=== PATIENT | female | born 1985 | race Caucasian/White ===

== ENCOUNTER 2018-05-17 06:50 | Day surgery (SDC) | payer OTHER ==
[2018-05-17] MEDS ORDERED: dexameTHASONE 10 MG/1 ML VIAL PRES.FREE (J1100) (06:51)
[2018-05-17] MEDS ORDERED: ROPIvacaine 0.5% 30 ML INJECTION (J2795 PER 1MG) (06:51)
[2018-05-17] MEDS ORDERED: EPINEPHrine INJ 1 MG/ML 1ML AMP (06:51)
[2018-05-17 07:27] LABS: CONTROL LINE UCG INT CTR LINE PRESENT; URINE PREG TEST NEGATIVE (NEGATIVE)
[2018-05-17] MEDS: LR 1,000 ML IV ×2 (07:30→11:24)
[2018-05-17] MEDS ORDERED: SCOPOLAMINE 1MG TRANSDERMAL PATCH As Ordered (07:49)
[2018-05-17] MEDS ORDERED: fentaNYL 100 MCG/2 ML INJECTION (J3010) As Ordered ×2 (07:57→10:58)
[2018-05-17] MEDS ORDERED: MIDAZOLAM INJ 2 MG/2 ML VIAL (J2250) As Ordered ×2 (07:57→09:20)
[2018-05-17] MEDS: fentaNYL 100 MCG/2 ML INJECTION (J3010) IV ×5 (08:23→11:19)
[2018-05-17] MEDS: MIDAZOLAM INJ 2 MG/2 ML VIAL (J2250) IV (08:23)
[2018-05-17] MEDS: ceFAZolin SOD 1 GM in D5W MINI-BAG PLUS 50 ML IV (09:00)
[2018-05-17] MEDS ORDERED: ROCURONIUM BROMIDE 50 MG/5 ML VIAL As Ordered ×2 (09:20)
[2018-05-17] MEDS ORDERED: METOCLOPRAMIDE INJ 10MG/2ML VIAL (J2765) As Ordered (09:20)
[2018-05-17] MEDS ORDERED: GLYCOPYRROLATE INJ 0.2 MG/ML 2 ML VIAL As Ordered (09:20)
[2018-05-17] MEDS ORDERED: dexameTHASONE 4 MG/ML 1ML VIAL (J1100) As Ordered (09:20)
[2018-05-17] MEDS ORDERED: NEOSTIGMINE 10 MG/10 ML VIAL (J2710) As Ordered (09:20)
[2018-05-17] MEDS ORDERED: LIDOCAINE 2% INJ 100 MG/5 ML SDV (FOR ANES.) As Ordered (09:20)
[2018-05-17] MEDS ORDERED: PROPOFOL 200 MG/20 ML VIAL As Ordered (09:20)
[2018-05-17] MEDS ORDERED: ONDANSETRON 4MG/2ML VIAL (J2405) As Ordered (09:20)
[2018-05-17] MEDS ORDERED: KETOROLAC 60 MG/2 ML VIAL (J1885) As Ordered (09:20)
[2018-05-17] MEDS ORDERED: fentaNYL 250 MCG/5 ML INJECTION (J3010) As Ordered (09:20)
[2018-05-17] MEDS: ceFAZolin 1GM INJ (J0690 PER 500MG) As Ordered (09:40)
[2018-05-17] MEDS ORDERED: SEVOFLURANE INHAL SOLN 250 ML BTL As Ordered (09:49)
[2018-05-17] MEDS: ROPIvacaine 0.5% 30 ML INJECTION (J2795 PER 1MG) As Ordered (10:30)
[2018-05-17] MEDS ORDERED: NORCO, ANEXSIA 5/325MG TABLET (HYDROcodone/ACETAMINOPHEN) As Ordered (11:01)
[2018-05-17] MEDS: NORCO, ANEXSIA 5/325MG TABLET (HYDROcodone/ACETAMINOPHEN) PO ×2 (11:03→11:33)
[2018-05-17] MEDS ORDERED: LR 1,000 ML IV (11:15)
[2018-05-17] MEDS ORDERED: NORCO, ANEXSIA 5/325MG TABLET (HYDROcodone/ACETAMINOPHEN) PO ×2 (11:15→12:15)
[2018-05-17] MEDS ORDERED: MORPHINE 4 MG/ML 1ML VIAL/SYRINGE (J2270) IV (11:15)
[2018-05-17] MEDS: ONDANSETRON 4MG/2ML VIAL (J2405) IV (11:17)
[2018-05-17] MEDS ORDERED: MORPHINE 10 MG/ML 1ML VIAL (J2270) As Ordered (12:05)
[2018-05-17] MEDS: MORPHINE 10 MG/ML 1ML VIAL (J2270) IV ×5 (12:09→12:29)
== END 2018-05-17 14:10 | disposition home or self-care (01) ==
LOC: M SDC 06:50
DX: S83.411A Sprain of medial collateral ligament of right knee, initial encounter (principal); X58.XXXA Exposure to other specified factors, initial encounter; Y92.89 Other specified places as the place of occurrence of the external cause; Y99.9 Unspecified external cause status; Y93.9 Activity, unspecified; M23.41 Loose body in knee, right knee; F41.9 Anxiety disorder, unspecified; K21.9 Gastro-esophageal reflux disease without esophagitis; Z79.899 Other long term (current) drug therapy
CPT/HCPCS: 29888

== ENCOUNTER → 2018-10-12 | Outpatient (REF) | payer OTHER ==
[2018-10-12 20:35] LABS: BASO % 0.6 % (0.0-1.0); EOS # 0.2 10^3/uL (0.0-0.50); EOS % 2.9 % (0.0-3.0); HEMATOCRIT 42.5 % (36.0-47.0); HEMOGLOBIN 14.1 g/dl (12.0-15.5); IMMATURE GRANULOCYTE % 0.3 % (0-3.0); LYMPH # 2.5 10^3/uL (1.5-4.5); LYMPH % 36.2 % (24.0-44.0); MEAN CORPUSCULAR HEMOGLOBIN 31.9 pg (27.0-33.0); MEAN CORPUSCULAR HGB CONC 33.2 g/dl (32.0-36.5); MEAN CORPUSCULAR VOLUME 96.2 fl (80.0-96.0); MONO # 0.4 10^3/uL (0.0-0.8); NEUTROPHILS # 3.8 10^3/uL (1.8-7.7); PLATELET COUNT, AUTOMATED 252 10^3/uL (150-450); RED BLOOD COUNT 4.42 10^6/uL (4.00-5.40); RED CELL DISTRIBUTION WIDTH 11.5 % (11.5-14.5)
[2018-10-12 20:55] LABS: ALBUMIN 4.2 GM/DL (3.2-5.2); ALBUMIN/GLOBULIN RATIO 1.31 (1.00-1.93); ALKALINE PHOSPHATASE 57 U/L (45-117); ALT/SGPT 22 U/L (12-78); ANION GAP 8 MEQ/L (8-16); AST/SGOT 18 U/L (7-37); BILIRUBIN,TOTAL 0.3 MG/DL (0.2-1.0); BLOOD UREA NITROGEN 11 MG/DL (7-18); CALCIUM LEVEL 8.8 MG/DL (8.5-10.1); CARBON DIOXIDE LEVEL 27 MEQ/L (21-32); CHLORIDE LEVEL 104 MEQ/L (98-107); CHOLESTEROL LEVEL 188 MG/DL (<200); CHOLESTEROL RISK RATIO 3.615 (<5); CREATININE FOR GFR 0.85 MG/DL (0.55-1.30); GLOMERULAR FILTRATION RATE > 60.0 (>60); GLUCOSE, FASTING 77 MG/DL (70-100); HDL CHOLESTEROL 52 MG/DL (>40); LDL CHOLESTEROL 98 MG/DL (<100); NON-HDL-C 136 MG/DL; POTASSIUM SERUM 4.7 MEQ/L (3.5-5.1); SODIUM LEVEL 139 MEQ/L (136-145); TOTAL PROTEIN 7.4 GM/DL (6.4-8.2); TRIGLYCERIDES LEVEL 192 MG/DL (<150)
== END ==
LOC: M SFHCADAM 15:40
DX: J45.990 Exercise induced bronchospasm (principal); Z13.220 Encounter for screening for lipoid disorders; Z13.0 Encounter for screening for diseases of the blood and blood-forming organs and certain disorders involving the immune mechanism
CPT/HCPCS: 84443

== ENCOUNTER → 2019-03-16 | Outpatient (REF) | payer OTHER ==
[~2019-03-16] MED LIST: IBUP200C25 PO; IBUP80TA PO; LABE300T PO; MIRE1IUD IU; NEXI1CAP3 PO; PERC7.5T12 PO; PRENTAB9 PO; RANI150T PO; XANA0.25 PO
== END ==
LOC: M LAB REF 19:14
PROVIDERS: ATTEND Physician Assistant Medical
DX: J02.9 Acute pharyngitis, unspecified (principal)

== ENCOUNTER → 2019-04-26 | Outpatient (CLI) | payer BC, OTHER ==
[~2019-04-26] MED LIST changes: +PROHANCE 279.3MG/ML 15ML VIAL (A9576) As Ordered ONE; +PROHANCE 279.3MG/ML 5ML VIAL (A9576) As Ordered ONE
--- NOTE | 2019-04-27 08:52 | REP ---
MRI BILATERAL BREASTS WITH AND WITHOUT CONTRAST: HISTORY: Extensive family history of maternal breast cancer in two maternal aunts, one at two different times, one premenopausal breast cancer at age 43. [facility] lifetime risk of breast cancer 26.9%. Multiple sequences obtained in the axial, coronal and sagittal planes prior to and following the intravenous administration of 16 mL ProHance. Imaging includes pre- and postaxial T1 fat sat images dynamically. Images are evaluated on [employer] software including CAD imaging, color overlay and 3D MIP reconstructions. Moderate fibroglandular tissue is seen bilaterally. Moderate background parenchymal enhancement is seen. No suspicious enhancing mass is seen. There is no morphologic abnormality. No significant cystic changes are seen. Normal size axillary lymph nodes are present without evidence of axillary adenopathy. IMPRESSION: BIRADS category 1 bilateral breast MRI. No suspicious mass. No morphologic abnormality. Supplemental screening MRI of the breasts is recommended annually for patients with lifetime risk of breast cancer 20% or greater. Electronically Signed by Yvon Garcia MD 04/27/2019 03:11 P
== END ==
LOC: M RAD 14:55
PROVIDERS: ATTEND Physician Assistant Medical
DX: Z80.3 Family history of malignant neoplasm of breast (principal)
CPT/HCPCS: A9576; C8908

== ENCOUNTER → 2019-10-26 | Outpatient (CLI) | payer BC ==
[~2019-10-26] MED LIST changes: -PROHANCE 279.3MG/ML 15ML VIAL (A9576) As Ordered ONE; -PROHANCE 279.3MG/ML 5ML VIAL (A9576) As Ordered ONE
--- NOTE | 2019-10-26 12:39 | REP ---
CHEST, TWO VIEWS: There is no evidence of acute infiltrate. No pleural effusion is seen. The heart is normal in size. The mediastinal silhouette is unremarkable. The visualized osseous structures are intact. IMPRESSION: No acute pulmonary disease. Electronically Signed by Yvon Garcia MD 10/26/2019 07:59 P
== END ==
LOC: M RAD 09:42
PROVIDERS: ATTEND Physician Assistant Medical
DX: J20.9 Acute bronchitis, unspecified (principal)

== ENCOUNTER → 2020-12-20 | Outpatient (REF) | payer BC ==
[2020-12-20 20:09] LABS: ALBUMIN 4.4 GM/DL (3.2-5.2); ALT/SGPT 36 U/L (12-78); BILIRUBIN,TOTAL 0.3 MG/DL (0.2-1.0); BLOOD UREA NITROGEN 17 MG/DL (7-18); CALCIUM LEVEL 9.4 MG/DL (8.5-10.1); CARBON DIOXIDE LEVEL 28 MEQ/L (21-32); CHLORIDE LEVEL 102 MEQ/L (98-107); CREATININE FOR GFR 0.85 MG/DL (0.55-1.30); GLOMERULAR FILTRATION RATE > 60.0 (>60); GLUCOSE, FASTING 74 MG/DL (70-100); POTASSIUM SERUM 4.4 MEQ/L (3.5-5.1); SODIUM LEVEL 139 MEQ/L (136-145); TOTAL PROTEIN 7.7 GM/DL (6.4-8.2)
[2020-12-20 21:29] LABS: HEMOGLOBIN A1c 5.1 %
== END ==
LOC: M PLALAB 15:16
PROVIDERS: ATTEND Advanced Practice Midwife
DX: Z12.4 Encounter for screening for malignant neoplasm of cervix (principal); E66.9 Obesity, unspecified
CPT/HCPCS: 36415; 80053; 82652; 83036; 84439; 84443; 87624; G0123

== ENCOUNTER → 2021-02-04 | Outpatient (REF) | payer BC | LOC: M LAB REF 10:53 | PROVIDERS: ATTEND Physician Assistant | DX: R05 Cough (principal) ==

== ENCOUNTER → 2021-02-20 | Outpatient (REF) | LOC: M LABSMTC 10:59 | PROVIDERS: ATTEND Pediatrics | DX: Z11.52 Encounter for screening for COVID-19 (principal) ==

== ENCOUNTER → 2021-07-04 | Outpatient (CLI) | payer BC ==
[~2021-07-04] MED LIST changes: +PROHANCE 279.3MG/ML 15ML VIAL As Ordered ONE; +PROHANCE 279.3MG/ML 5ML VIAL As Ordered ONE
--- NOTE | 2021-07-05 08:32 | REP ---
INDICATION: HIGH RISK BREAST CA SCREENING. COMPARISON: Comparison mammography October 16, 2020. Comparison MRI study of the breasts May 31, 2020. TECHNIQUE: Three Rema MRI imaging was performed with a dedicated breast coil. Axial, coronal, and sagittal T1 and T2 weighted scans were obtained with and without fat saturation in the usual fashion. The study includes dynamically acquired post gadolinium-enhanced imaging with image subtraction. Maximum intensity projection and multi planar reformation imaging is included as well. This study is interpreted with the aid of [employer], an FDA approved computer aided detection (CAD) software program, on a dedicated breast MRI workstation. The gadolinium enhancement dose is 16 mL of intravenous ProHance. FINDINGS: There is a moderate amount of fibroglandular tissue bilaterally corresponding with the mammographic pattern. There is moderate multifocal background parenchymal enhancement. There is no evidence of axillary lymphadenopathy or significant breast cystic change. High-resolution pre and post-contrast T1 and T2 weighted scans show no suspicious morphologic abnormality in either breast. Dynamically acquired sequential postcontrast images show no suspicious area of enhancement and washout kinetics in either breast to suggest malignancy. Subtraction images show no additional abnormality. IMPRESSION: BI-RADS category 1 negative bilateral breast MRI findings. No significant change from comparison study. <Electronically signed by Yousif Blanco > 07/05/21 [id number]
== END ==
LOC: M RAD 15:12
PROVIDERS: ATTEND Physician Assistant Medical
DX: Z12.39 Encounter for other screening for malignant neoplasm of breast (principal)
CPT/HCPCS: A9576; C8908

== ENCOUNTER → 2021-12-10 | Outpatient (CLI) | payer BC ==
[~2021-12-10] MED LIST changes: -PROHANCE 279.3MG/ML 15ML VIAL As Ordered ONE; -PROHANCE 279.3MG/ML 5ML VIAL As Ordered ONE
== END ==
LOC: M WHC 09:41
PROVIDERS: ATTEND Physician Assistant Medical
DX: Z12.31 Encounter for screening mammogram for malignant neoplasm of breast (principal); Z80.3 Family history of malignant neoplasm of breast

== ENCOUNTER → 2022-03-27 | Outpatient (CLI) | payer BC | LOC: M WHC 14:29 | PROVIDERS: ATTEND Advanced Practice Midwife | DX: N63.0 Unspecified lump in unspecified breast (principal) | CPT/HCPCS: 76642; 77065; G0279 ==

== ENCOUNTER → 2022-07-17 | Outpatient (CLI) | payer BC ==
[~2022-07-17] MED LIST changes: +PROHANCE 279.3MG/ML 15ML VIAL ONE
== END ==
LOC: M PLAIMG 14:53
PROVIDERS: ATTEND Advanced Practice Midwife
DX: Z12.31 Encounter for screening mammogram for malignant neoplasm of breast (principal); Z91.89 Other specified personal risk factors, not elsewhere classified
CPT/HCPCS: A9576; C8908

== ENCOUNTER → 2022-10-21 | Outpatient (REF) ==
[~2022-10-21] MED LIST changes: -PROHANCE 279.3MG/ML 15ML VIAL ONE
== END ==
LOC: M EMP 08:42
PROVIDERS: ATTEND Family Medicine
DX: Z11.52 Encounter for screening for COVID-19 (principal)

== ENCOUNTER → 2022-12-19 | Outpatient (CLI) | payer BC | LOC: M WHC 14:34 | PROVIDERS: ATTEND Family Medicine | DX: Z12.31 Encounter for screening mammogram for malignant neoplasm of breast (principal); Z80.3 Family history of malignant neoplasm of breast ==

== ENCOUNTER → 2023-08-10 | Outpatient (CLI) | payer BC ==
[~2023-08-10] MED LIST changes: +PROHANCE 279.3MG/ML 15ML VIAL As Ordered ONE; +PROHANCE 279.3MG/ML 5ML VIAL As Ordered ONE
== END ==
LOC: M RAD 10:43
PROVIDERS: ATTEND Physician Assistant Medical
DX: Z12.31 Encounter for screening mammogram for malignant neoplasm of breast (principal); Z80.3 Family history of malignant neoplasm of breast
CPT/HCPCS: A9576; C8908

== ENCOUNTER → 2024-01-27 | Outpatient (CLI) | payer BC ==
[~2024-01-27] MED LIST changes: -PROHANCE 279.3MG/ML 15ML VIAL As Ordered ONE; -PROHANCE 279.3MG/ML 5ML VIAL As Ordered ONE
== END ==
LOC: M WHC 15:30
PROVIDERS: ATTEND Physician Assistant Medical
DX: Z12.31 Encounter for screening mammogram for malignant neoplasm of breast (principal)

== ENCOUNTER → 2024-01-28 | Outpatient (CLI) | payer BC ==
[2024-01-28 07:40] LABS: BASO % 0.6 % (0.0-1.0); EOS # 0.2 10^3/uL (0.0-0.5); EOS % 4.1 % (0.0-3.0); HEMATOCRIT 41.1 % (36.0-47.0); HEMOGLOBIN 13.9 g/dl (12.0-15.5); LYMPH # 1.4 10^3/uL (1.5-5.0); MEAN CORPUSCULAR HEMOGLOBIN 32.5 pg (27.0-33.0); MEAN CORPUSCULAR HGB CONC 33.8 g/dl (32.0-36.5); MONO # 0.3 10^3/uL (0.0-0.8); MONO % 6.8 % (2.0-8.0); NEUTROPHILS # 2.9 10^3/uL (1.5-8.5); NEUTROPHILS % 59.3 % (36.0-66.0); PLATELET COUNT, AUTOMATED 235 10^3/uL (150-450); RED BLOOD COUNT 4.28 10^6/uL (4.00-5.40); WHITE BLOOD COUNT 4.9 10^3/uL (4.0-10.0)
[2024-01-28 08:13] LABS: ALBUMIN 3.8 G/DL (3.2-5.2); ALKALINE PHOSPHATASE 63 U/L (46-116); ALT/SGPT 29 U/L (7.0-40); AST/SGOT 17 U/L (<34); BILIRUBIN,TOTAL 0.5 MG/DL (0.3-1.2); BLOOD UREA NITROGEN 15 MG/DL (9-23); CALCIUM LEVEL 8.9 MG/DL (8.5-10.1); CARBON DIOXIDE LEVEL 28 MMOL/L (20-31); CHLORIDE LEVEL 109 MMOL/L (98-107); CHOLESTEROL LEVEL 172 MG/DL (<200); CHOLESTEROL RISK RATIO 4.61 (<5); CREATININE FOR GFR 0.83 MG/DL (0.55-1.30); GLOMERULAR FILTRATION RATE > 60.0 (>60); GLUCOSE, FASTING 101 MG/DL (60-100); HDL CHOLESTEROL 37.3 MG/DL (>40); LDL CHOLESTEROL 107.5 MG/DL (<100); NON-HDL-C 134.7 MG/DL; POTASSIUM SERUM 4.6 MMOL/L (3.5-5.1); SODIUM LEVEL 141 MMOL/L (136-145); TOTAL PROTEIN 6.4 G/DL (5.7-8.2); TRIGLYCERIDES LEVEL 136 MG/DL (<150)
[2024-01-28 08:15] LABS: THYROID STIMULATING HORMONE 1.471 uIU/ML (0.55-4.78); TOTAL 25(OH) VITAMIN D 25.7 NG/ML (20.0-100.0)
== END ==
LOC: M LAB 06:59
PROVIDERS: ATTEND Family Medicine
DX: J45.990 Exercise induced bronchospasm (principal); F41.9 Anxiety disorder, unspecified; K21.9 Gastro-esophageal reflux disease without esophagitis; E66.09 Other obesity due to excess calories; Z12.39 Encounter for other screening for malignant neoplasm of breast

== ENCOUNTER → 2024-02-24 | Outpatient (REF) | payer BC | LOC: M SFHCWAGY 12:35 | PROVIDERS: ATTEND Advanced Practice Midwife | DX: Z01.419 Encounter for gynecological examination (general) (routine) without abnormal findings (principal); Z12.4 Encounter for screening for malignant neoplasm of cervix; Z11.51 Encounter for screening for human papillomavirus (HPV) ==

== ENCOUNTER → 2024-09-06 | Outpatient (CLI) | payer BC ==
[~2024-09-06] MED LIST changes: +PROHANCE 279.3MG/ML 15ML VIAL ONE
== END ==
LOC: M PLAIMG 12:42
PROVIDERS: ATTEND Physician Assistant Medical
DX: Z12.31 Encounter for screening mammogram for malignant neoplasm of breast (principal); Z80.3 Family history of malignant neoplasm of breast

== ENCOUNTER → 2024-09-15 | Outpatient (CLI) | payer BC ==
[~2024-09-15] MED LIST changes: -PROHANCE 279.3MG/ML 15ML VIAL ONE
== END ==
LOC: M WHC 10:13
PROVIDERS: ATTEND Physician Assistant Medical
DX: R92.8 Other abnormal and inconclusive findings on diagnostic imaging of breast (principal)

== ENCOUNTER → 2024-12-21 | Outpatient (CLI) | payer BC | LOC: M WHC 13:05 | PROVIDERS: ATTEND Advanced Practice Midwife | DX: N92.6 Irregular menstruation, unspecified (principal); Z30.014 Encounter for initial prescription of intrauterine contraceptive device; N88.8 Other specified noninflammatory disorders of cervix uteri; N83.291 Other ovarian cyst, right side ==

== ENCOUNTER → 2025-02-22 | Outpatient (CLI) | payer BC ==
[~2025-02-22] MED LIST changes: +ADDE1TAB14 PO; +ADDE20CA3 PO; +ALPR0.25 PO; +APAP325T4 PO; +IBUP200C29 PO; +mirena
== END ==
LOC: M WHC 09:37
PROVIDERS: ATTEND Family Medicine
DX: Z12.31 Encounter for screening mammogram for malignant neoplasm of breast (principal); R92.8 Other abnormal and inconclusive findings on diagnostic imaging of breast; Z85.3 Personal history of malignant neoplasm of breast
CPT/HCPCS: 76641; 77066; G0279

== ENCOUNTER → 2025-02-28 | Outpatient (CLI) | payer BC ==
[2025-02-28 13:29] LABS: HEMATOCRIT 40.6 % (36.0-47.0); HEMOGLOBIN 13.7 g/dl (12.0-15.5); MEAN CORPUSCULAR HEMOGLOBIN 32.7 pg (27.0-33.0); MEAN CORPUSCULAR HGB CONC 33.7 g/dl (32.0-36.5); MEAN CORPUSCULAR VOLUME 96.9 fl (80.0-96.0); PLATELET COUNT, AUTOMATED 286 10^3/uL (150-450); RED BLOOD COUNT 4.19 10^6/uL (4.00-5.40); WHITE BLOOD COUNT 5.5 10^3/uL (4.0-10.0)
[2025-02-28 13:55] LABS: BLOOD UREA NITROGEN 15 MG/DL (9-23); CALCIUM LEVEL 9.1 MG/DL (8.5-10.1); CARBON DIOXIDE LEVEL 27 MMOL/L (20-31); CHLORIDE LEVEL 103 MMOL/L (98-107); CREATININE FOR GFR 0.81 MG/DL (0.55-1.30); GLOMERULAR FILTRATION RATE > 90.0 (>60); GLUCOSE, FASTING 93 MG/DL (60-100); POTASSIUM SERUM 4.3 MMOL/L (3.5-5.1); SODIUM LEVEL 139 MMOL/L (136-145)
== END ==
LOC: M LAB 13:02
PROVIDERS: ATTEND Physician Assistant Medical
DX: Z01.818 Encounter for other preprocedural examination (principal); N64.81 Ptosis of breast

== ENCOUNTER 2025-03-02 05:50 | Day surgery (SDC) | payer SELFPAY ==
[~2025-03-02] VITALS: Ht 162.6 cm; Wt 75.3 kg
[2025-03-02] MEDS ORDERED: ONDANSETRON 4MG 2ML VIAL As Ordered ONE (07:27)
[2025-03-02] MEDS ORDERED: fentaNYL 250 MCG/5 ML INJECTION As Ordered ONE (07:27)
[2025-03-02] MEDS ORDERED: dexmedeTOMIDine (4MCG/ML)200MCG/50ML BTL (PRECEDEX) As Ordered ONE (07:27)
[2025-03-02] MEDS ORDERED: propofoL 200 MG/20 ML VIAL As Ordered ONE (07:27)
[2025-03-02] MEDS ORDERED: ROCURONIUM BROMIDE 50MG/5ML VIAL As Ordered ONE (07:27)
[2025-03-02] MEDS ORDERED: MIDAZOLAM INJ 2MG/2ML VIAL As Ordered ONE (07:28)
[2025-03-02] MEDS: SCOPOLAMINE 1MG TRANSDERMAL PATCH TOP STA (07:36)
[2025-03-02] MEDS: ceFAZolin SOD 2 GM IV ONCE IV ONE (07:44)
[2025-03-02] MEDS ORDERED: LACRILUBE (AKWA TEARS) OPHTH OINT 3.5GM As Ordered ONE (07:51)
[2025-03-02] MEDS: HEPARIN SOD (PORCINE) 5000UNITS/ML 1ML VIAL/SYRINGE SQ ONE (07:52)
[2025-03-02] MEDS: GENTAMICIN SULF 80MG/2ML VIAL As Ordered ONE (08:20)
[2025-03-02] MEDS ORDERED: SUGAMMADEX SODIUM 500 MG/5 ML VIAL (BRIDION) As Ordered ONE (08:31)
[2025-03-02] MEDS ORDERED: HYDROmorphone HCL 2MG/ML 1ML VIAL As Ordered ONE (08:31)
[2025-03-02] MEDS ORDERED: ACETAMINOPHEN 1000MG/100ML IV BAG As Ordered ONE (08:31)
[2025-03-02] MEDS: LIDOCAINE 1% MDV 20ML VIAL As Ordered ONE (08:52)
[2025-03-02] MEDS: EPINEPHrine INJ 1 MG/ML 1ML AMP As Ordered ONE (08:52)
[2025-03-02] MEDS ORDERED: METOCLOPRAMIDE INJ 10MG/2ML VIAL As Ordered ONE (10:53)
[2025-03-02] MEDS: ceFAZolin SODIUM 2 GM VIAL As Ordered ONE (11:20)
[2025-03-02] MEDS: BUPivacaine LIPOSOME/PF 266MG 20ML VIAL (13.3MG/ML)(EXPAREL) As Ordered ONE (11:24)
[2025-03-02] MEDS ORDERED: METOCLOPRAMIDE INJ 10MG/2ML VIAL IV PRN (12:20)
[2025-03-02] MEDS ORDERED: LR 1,000 ML IV SCH (12:20)
[2025-03-02] MEDS ORDERED: diphenhydrAMINE 50MG/ML VIAL IV PRN (12:20)
[2025-03-02] MEDS: MEPERIDINE 25 MG/ML 1ML VIAL IV PRN (13:00)
[2025-03-02] MEDS: ONDANSETRON 4MG 2ML VIAL IV PRN (13:03)
[2025-03-02] MEDS: fentaNYL 100 MCG/2 ML INJECTION IV PRN (13:16)
[2025-03-02] MEDS: oxyCODONE 5MG TAB PO PRN (13:40)
[2025-03-02] MEDS ORDERED: OXYC1TAB23 PO (16:10)
[2025-03-02 16:50] VITALS: BP 133/78; TEMP 97; O2SAT 100
== END 2025-03-02 17:11 | disposition home or self-care (01) ==
LOC: M SDC 05:50
PROVIDERS: ATTEND Plastic Surgery Surgery of the Hand
DX: N64.81 Ptosis of breast (principal); E88.1 Lipodystrophy, not elsewhere classified; F41.9 Anxiety disorder, unspecified; F90.9 Attention-deficit hyperactivity disorder, unspecified type; Z79.899 Other long term (current) drug therapy
CPT/HCPCS: 15877; 19316; 81025; 88300; 88302; 88305; J0131; J0171; J0665; J0666; J0690; J1100; J1171; J1580; J2175; J2250; J2405; J2765; J3010